=== PATIENT | female | born 1970 | race Caucasian/White ===

== ENCOUNTER → 2018-12-11 | Outpatient (CLI) | payer OTHER | LOC: EDSTATUS 16:23 → SUPIMAGING 17:21 → MERGE 17:21 | PROVIDERS: ATTEND Family Medicine | DX: S92.511A Displaced fracture of proximal phalanx of right lesser toe(s), initial encounter for closed fracture (principal) | CPT/HCPCS: 73660-PN ==

== ENCOUNTER → 2019-01-09 | Outpatient (CLI) | payer OTHER | LOC: CIMAGING 13:05 | PROVIDERS: ATTEND Podiatrist | DX: S92.511D Displaced fracture of proximal phalanx of right lesser toe(s), subsequent encounter for fracture with routine healing (principal) | CPT/HCPCS: 73660-PO ==

== ENCOUNTER → 2019-02-13 | Outpatient (CLI) | payer OTHER | LOC: CIMAGING 09:21 | PROVIDERS: ATTEND Podiatrist | DX: S92.511D Displaced fracture of proximal phalanx of right lesser toe(s), subsequent encounter for fracture with routine healing (principal) | CPT/HCPCS: 73630-PO ==